=== PATIENT | female | born 1935 | race Caucasian/White ===

== ENCOUNTER 2017-03-21 07:27 | Inpatient (IN) | payer OTHER ==
[~2017-03-21] VITALS: Ht 152.4 cm; Wt 114.9 kg
[~2017-03-21 07:27] MED LIST: ADVAIR 250/501 DISK IH; AMLODIPINE BESYL5 MG PO; ASPERCREME TP; BAYER CHEWABLE81 MG PO; CALAN SR,COVER240 MG PO; CEPACOL SORE T1 EAC9 MM; DIOVAN HCT 11 TABLET PO; DULCOLAX10 MG PR; DULCOLAX5 MG PO; DUONEB 2.5-0.5 M3 ML AEROSOL; FLEET MINERAL133 ML PR; HYDROCHLOROTHIA25 MG PO; IBUPROFEN800 MG PO; LITE COAT ASPI325 M1 PO; LOSARTAN POTAS100 MG PO; METOPROLOL TART50 MG PO; MILK OF MAGN PO; NORCO 10/3251 TABLET PO; OMEPRAZOLE20 M2 PO; OXYCODONE-APAP1 EACH PO; ROBITUSSIN DM118 ML PO; SENNA8.6 MG PO; TESSALON200 MG PO; VERAPAMIL HCL240 MG PO; ZOCOR40 MG PO
[2017-03-21 08:09] LABS: BASOPHIL (%) 0.3 % (0-1); EOSINOPHIL (%) 0.3 % (0-5); HEMATOCRIT 39.1 % (36.0-46.0); HEMOGLOBIN 12.8 G/DL (11.9-15.5); IMMATURE GRANULOCYTE (%) 0.6 % (0.0-0.7); LYMPHOCYTE (%) 37.6 % (15-42); LYMPHOCYTE COUNT 1.3 K/uL (1.0-2.8); MCH 30.4 PG (29.0-34.0); MCHC 32.7 G/DL (30.0-36.0); MCV 92.9 FL (83-99); MONOCYTE (%) 13.2 % (3-12); MONOCYTE COUNT 0.5 K/uL (0-0.8); NEUTROPHIL COUNT 1.6 K/uL (1.8-6.4); PLATELET COUNT 193 K/uL (156-360); RBC DIS.WIDTH-CV 14.9 % (11.8-14.6); RBC DIS.WIDTH-SD 50.8 % (39-53); RED BLOOD COUNT 4.21 M/uL (3.80-5.20); WHITE BLOOD COUNT 3.4 K/uL (4.1-10.2)
[2017-03-21 08:19] LABS: CHLORIDE 108 mEq/L (99-109); POTASSIUM 4.5 mEq/L (3.7-5.4); PTT 27.1 SEC (25-37); SODIUM 141 mEq/L (136-147)
[2017-03-21 08:21] LABS: GLUCOSE 90 mg/dL (70-99)
[2017-03-21 08:25] LABS: CREATININE 0.9 mg/dL (0.6-1.3); GFR ESTIMATE (CALCULATED) > 59 mL/min/
[2017-03-21 08:26] LABS: UREA NITROGEN (BUN) 28 mg/dL (9-23)
[2017-03-21 08:31] LABS: TROP-I INTERPRETATION NEGATIVE; TROPONIN-I < 0.01 ng/mL (0.0-0.30)
[2017-03-21 15:47] VITALS: BP 120/76
[2017-03-21] MEDS ORDERED: BREO ELLIPTA I1 EACH IH (15:56)
[2017-03-21] MEDS ORDERED: PREDNISONE10 MG PO ×2 (15:57→15:59)
[2017-03-21] MEDS ORDERED: ZANTAC150 MG PO (15:59)
[2017-03-21] MEDS ORDERED: AMLODIPINE BESYL5 MG PO (16:00)
[2017-03-21] MEDS ORDERED: MUCINEX600 MG PO (16:01)
[2017-03-21] MEDS ORDERED: PROBIOTIC1 EAC1 PO (16:02)
[2017-03-21] MEDS ORDERED: COLCRYS0.6 MG PO (16:05)
[2017-03-21 17:00] VITALS: BP 120/97
[2017-03-21 18:11] VITALS: BP 155/69
[2017-03-21 18:33] VITALS: BP 155/72
[2017-03-21 20:00] VITALS: BP 122/70
[2017-03-22] VITALS: BP 146/76
[2017-03-22 06:29] VITALS: BP 123/67
[2017-03-22 06:55] LABS: HEMATOCRIT 40.7 % (36.0-46.0); HEMOGLOBIN 13.1 G/DL (11.9-15.5); MCH 29.4 PG (29.0-34.0); MCHC 32.2 G/DL (30.0-36.0); MCV 91.5 FL (83-99); PLATELET COUNT 198 K/uL (156-360); RBC DIS.WIDTH-CV 14.5 % (11.8-14.6); RBC DIS.WIDTH-SD 48.4 % (39-53); RED BLOOD COUNT 4.45 M/uL (3.80-5.20); WHITE BLOOD COUNT 2.2 K/uL (4.1-10.2)
[2017-03-22 07:23] LABS: ALBUMIN 3.3 G/DL (3.2-4.8); ALKALINE PHOSPHATASE 44 IU/L (3-129); ALT (GPT) 14 IU/L (3-49); AST (GOT) 20 IU/L (2-34); CHLORIDE 108 MEQ/L (99-109); GFR ESTIMATE (CALCULATED) 57 mL/min/; SODIUM 140 MEQ/L (136-147); TOTAL BILIRUBIN 0.3 MG/DL (0.0-1.0); TOTAL PROTEIN 5.8 G/DL (6.4-8.3); UREA NITROGEN (BUN) 29 mg/dL (9-23)
[2017-03-22 07:25] LABS: GLUCOSE 142 mg/dL (70-99)
[2017-03-22 08:14] VITALS: BP 126/80
[2017-03-22 12:55] VITALS: BP 112/70
[2017-03-22 16:00] VITALS: BP 110/66
[2017-03-22 19:50] VITALS: BP 122/78
[2017-03-23] VITALS (7 sets, daily range): BP systolic 111–197; BP diastolic 57–92
[2017-03-24 05:33] VITALS: BP 116/71
[2017-03-24 07:27] VITALS: BP 128/82
[2017-03-24 12:44] VITALS: BP 147/79
[2017-03-24 17:53] VITALS: BP 119/71
[2017-03-24 19:25] VITALS: BP 126/79
[2017-03-25 00:15] VITALS: BP 131/96
[2017-03-25 04:25] VITALS: BP 133/70
[2017-03-25 06:48] VITALS: BP 129/91
[2017-03-25 15:25] VITALS: BP 138/81
[2017-03-25 19:25] VITALS: BP 146/76
[2017-03-26 00:03] VITALS: BP 138/72
[2017-03-26 03:38] VITALS: BP 141/64
[2017-03-26 06:43] LABS: BASOPHIL (%) 0.3 % (0-1); EOSINOPHIL (%) 0 % (0-5); HEMATOCRIT 44.3 % (36.0-46.0); HEMOGLOBIN 14.2 G/DL (11.9-15.5); LYMPHOCYTE (%) 6.6 % (15-42); LYMPHOCYTE COUNT 0.4 K/uL (1.0-2.8); MCH 29.1 PG (29.0-34.0); MCHC 32.1 G/DL (30.0-36.0); MCV 90.8 FL (83-99); MONOCYTE (%) 5.3 % (3-12); MONOCYTE COUNT 0.3 K/uL (0-0.8); NEUTROPHIL (%) 84.8 % (45-76); NEUTROPHIL COUNT 5.1 K/uL (1.8-6.4); PLATELET COUNT 226 K/uL (156-360); RBC DIS.WIDTH-SD 46.9 % (39-53); RED BLOOD COUNT 4.88 M/uL (3.80-5.20)
[2017-03-26 07:05] VITALS: BP 137/80
[2017-03-26 07:25] LABS: ALBUMIN 3.3 G/DL (3.2-4.8); ALKALINE PHOSPHATASE 43 IU/L (3-129); ALT (GPT) 66 IU/L (3-49); AST (GOT) 40 IU/L (2-34); CHLORIDE 108 MEQ/L (99-109); CREATININE 1.1 MG/DL (0.6-1.3); GFR ESTIMATE (CALCULATED) 51 mL/min/; GLUCOSE 117 mg/dL (70-99); POTASSIUM 4.5 MEQ/L (3.7-5.4); SODIUM 141 MEQ/L (136-147); TOTAL BILIRUBIN 0.3 MG/DL (0.0-1.0); TOTAL PROTEIN 5.5 G/DL (6.4-8.3); UREA NITROGEN (BUN) 47 mg/dL (9-23)
[2017-03-26 11:58] VITALS: BP 131/76
[2017-03-26 16:27] VITALS: BP 144/82
[2017-03-26 20:00] VITALS: BP 159/83
[2017-03-27] VITALS: BP 144/78
[2017-03-27 03:42] VITALS: BP 136/83
[2017-03-27 08:06] VITALS: BP 118/78
[2017-03-27 11:03] VITALS: BP 142/90
[2017-03-27 11:22] VITALS: BP 135/82
[2017-03-27] MEDS ORDERED: CARDIZEM CD,CA180 MG PO (14:40)
[2017-03-27] MEDS ORDERED: ELIQUIS5 MG PO (14:40)
[2017-03-27] MEDS ORDERED: TYLENOL REGULA325 MG PO (14:41)
[2017-03-27] MEDS ORDERED: PREDNISONE10 MG PO (14:42)
[2017-03-27 16:12] VITALS: BP 138/78
== END 2017-03-27 16:54 | DRG 194 ==
LOC: EME 07:27 → 4EAST 12:09 → EDOF 12:09 → ENRESERV 12:24 → EDOF 13:57 → ENRESERV 14:00 → 4EAST 15:36 → 4SOUTH 15:37 → ENRESERV 16:09 → 4SOUTH 16:09 → 4EAST 16:49 → ENRESERV 03-24 15:16 → 2EAST 03-25 15:24
PROVIDERS: Emergency Medicine; Internal Medicine
DX: J10.1 Influenza due to other identified influenza virus with other respiratory manifestations (principal); J44.1 Chronic obstructive pulmonary disease with (acute) exacerbation; J44.0 Chronic obstructive pulmonary disease with (acute) lower respiratory infection; J20.9 Acute bronchitis, unspecified; J10.89 Influenza due to other identified influenza virus with other manifestations; I48.91 Unspecified atrial fibrillation; I11.0 Hypertensive heart disease with heart failure; I50.9 Heart failure, unspecified; E78.5 Hyperlipidemia, unspecified; F41.9 Anxiety disorder, unspecified; K21.9 Gastro-esophageal reflux disease without esophagitis; M10.9 Gout, unspecified; F32.9 Major depressive disorder, single episode, unspecified; E66.9 Obesity, unspecified; Z68.42 Body mass index [BMI] 45.0-49.9, adult; Z82.49 Family history of ischemic heart disease and other diseases of the circulatory system; Z87.891 Personal history of nicotine dependence; Z79.82 Long term (current) use of aspirin
CPT/HCPCS: 71045; 71275; 80048; 80053; 83880; 84484; 85025; 85027; 85610; 85730; 87070; 87205; 87502; 93306; 94640; 94640 76; 94799; 99202; 99281; 99285; J0696; J2920; J2930; J7050; J7512; J7644